=== PATIENT | female | born 1980 | race African-American/Black ===

== ENCOUNTER 2018-04-13 13:21 | Emergency (ER) | payer SELFPAY ==
[~2018-04-13] VITALS: Ht 165.1 cm; Wt 115.8 kg
[~2018-04-13 13:21] MED LIST: ABIL5; QUET25TA; TRAZ-212; UNKNOWN MEDS
[2018-04-13] MEDS ORDERED: IBUPROFEN 800MG TABLET PO ONE (17:00)
[2018-04-13 17:40] VITALS: BP 136/80
== END 2018-04-13 17:44 | disposition home or self-care (01) ==
LOC: ER 13:21
DX: S80.01XA Contusion of right knee, initial encounter (principal); S80.12XA Contusion of left lower leg, initial encounter; S20.229A Contusion of unspecified back wall of thorax, initial encounter; S70.12XA Contusion of left thigh, initial encounter; S00.12XA Contusion of left eyelid and periocular area, initial encounter; Z88.6 Allergy status to analgesic agent; Z88.5 Allergy status to narcotic agent; Z88.9 Allergy status to unspecified drugs, medicaments and biological substances; Z79.899 Other long term (current) drug therapy; Y08.89XA Assault by other specified means, initial encounter; Y93.89 Activity, other specified; Y92.89 Other specified places as the place of occurrence of the external cause; Y99.8 Other external cause status
CPT/HCPCS: 99282

== ENCOUNTER 2019-06-14 11:54 | Emergency (ER) | payer BC ==
[~2019-06-14 11:54] MED LIST changes: -TRAZ-212; +TRAZ-251
[2019-06-14 12:10] VITALS: BP 120/73
[2019-06-14] MEDS ORDERED: PREDNISONE 20MG TABLET PO ONE (12:45)
[2019-06-14] MEDS ORDERED: DIPHENHYDRAMINE 25MG CAPSULE PO ONE (12:45)
== END 2019-06-14 12:54 | disposition home or self-care (01) ==
LOC: ER 11:54
DX: L25.9 Unspecified contact dermatitis, unspecified cause (principal); F17.200 Nicotine dependence, unspecified, uncomplicated; Z88.5 Allergy status to narcotic agent; Z79.899 Other long term (current) drug therapy; Z88.6 Allergy status to analgesic agent
CPT/HCPCS: 99283; J7512; Q0163